=== PATIENT | female | born 1975 | race Caucasian/White ===

== ENCOUNTER 2016-12-04 06:59 | Day surgery (SDC) | payer BC ==
[~2016-12-04] VITALS: Ht 162.6 cm; Wt 67.1 kg
[2016-12-04] MEDS ORDERED: CEFAZOLIN SOD 1 GM/ ISO 50 ML PREMIX IV ONE (08:00)
[2016-12-04] MEDS ORDERED: LR 1,000 ML IV ONE (10:02)
[2016-12-04] MEDS ORDERED: ONDANSETRON HCL 4 MG/2 ML VIAL IVP PRN ×3 (10:15→11:15)
[2016-12-04] MEDS ORDERED: ePHEDrine sulfate 50 MG/ML VIAL IVP PRN (10:15)
[2016-12-04] MEDS ORDERED: DIPHENHYDRAMINE INJ 50 MG/ML VIAL IVP PRN (10:15)
[2016-12-04] MEDS ORDERED: NALOXONE HCL 0.4 MG/ML AMP (NARCAN) IVP PRN (10:15)
[2016-12-04] MEDS ORDERED: fentaNYL CITRATE/PF 100 MCG/2 ML AMP IVP PRN (10:15)
[2016-12-04] MEDS ORDERED: NALBUPHINE HCL 10 MG/ML AMP IVP PRN (10:15)
[2016-12-04] MEDS ORDERED: HYDROcodone/ACETAMIN 5-325 MG TAB (NORCO/ VICODIN) PO PRN (11:15)
[2016-12-04] MEDS ORDERED: OXYCODONE/ACETAMINOPHEN 5-325 TABLET PO PRN ×2 (11:15)
[2016-12-04] MEDS ORDERED: fentaNYL CITRATE/PF 100 MCG/2 ML AMP ONE (11:58)
[2016-12-04 12:33] VITALS: BP_SYST 106
[2016-12-04] MEDS ORDERED: OXYCODONE/ACETAMINOPHEN 5-325 TABLET ONE (13:04)
[2016-12-04] MEDS ORDERED: SEVOFLURANE 15 MIN GAS INH ONE (14:00)
[2016-12-04] MEDS ORDERED: fentaNYL CITRATE 250 MCG/5 ML AMP ONE (14:00)
[2016-12-04] MEDS ORDERED: SUCCINYLCHOLINE CHLORIDE 20 MG/ML(QUELICIN) ONE (14:00)
[2016-12-04] MEDS ORDERED: KETOROLAC TROMETHAMINE 30 MG VIAL IVP ONE (14:00)
[2016-12-04] MEDS ORDERED: PROPOFOL 200MG/ 20ML VIAL (DIPRIVAN) IV ONE (14:00)
[2016-12-04] MEDS ORDERED: MIDAZOLAM HCL 5 MG/5 ML VIAL ONE (14:00)
[2016-12-04] MEDS ORDERED: NEOSTIGMINE METHYLSULFATE 1 MG/ML, 10 ML VIAL ONE (14:00)
[2016-12-04] MEDS ORDERED: NS IRRIG SOLN 1000 ML IR ONE (14:00)
[2016-12-04] MEDS ORDERED: KETOROLAC TROMETHAMINE 30 MG VIAL ONE ×2 (14:00→14:10)
[2016-12-04] MEDS ORDERED: LR 1,000 ML IV.SOLN IV ONE (14:00)
[2016-12-04] MEDS ORDERED: GLYCOPYRROLATE 0.2 MG/ML VIAL ONE (14:00)
[2016-12-04] MEDS ORDERED: CEFAZOLIN 1 GM IVPB PREMIX 50 ML IV ONE (15:00)
== END 2016-12-04 15:20 | disposition home or self-care (01) ==
LOC: SMU 06:59 → SDS 06:59
PROVIDERS: ATTEND Specialist
DX: D25.1 Intramural leiomyoma of uterus (principal); D25.0 Submucous leiomyoma of uterus; D25.2 Subserosal leiomyoma of uterus; D26.9 Other benign neoplasm of uterus, unspecified; K21.9 Gastro-esophageal reflux disease without esophagitis; D64.9 Anemia, unspecified; G43.909 Migraine, unspecified, not intractable, without status migrainosus
CPT/HCPCS: 58546; 88305; C1727; J0330; J0690; J1885; J2250; J2704; J2710; J3010 ×2; J3490; J7120; E0190